=== PATIENT | male | born 1980 | race Caucasian/White ===

== ENCOUNTER 2018-02-01 12:35 | Emergency (ER) | payer BC ==
--- NOTE | 2018-02-01 13:34 | UC ---
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 Here with his young son. Has had poison isabelle contact in past but reaction was never this significant. rash is up b /l arms and encompasing forarms. + streaks and very itchy. has never needed prednisone. last reaction was mild. - History of Current Complaint Chief Complaint: UCRash Time Seen by Provider: 02/01/18 13:24 Stated Complaint: SKIN COMPLAINT Pain Intensity: 0 - Allergy/Home Medications Allergies/Adverse Reactions: Allergies Allergy/AdvReac Type Severity Reaction Status Date / Time No Known Allergies Allergy Verified 02/01/18 13:15 Home Medications: Home Medications Calamine Lotion 1 dose TOPICAL SEE INSTRUCTIONS PRN 02/01/18 [History Confirmed 02/01/18] Skin Cleanser Comb No.41 [Tecnu] 355 ml TP SEE INSTRUCTIONS PRN 02/01/18 [ History Confirmed 02/01/18] Review of Systems Constitutional: Negative Skin: Rash, Other - itchiness Eyes: Negative ENT: Negative Respiratory: Negative Cardiovascular: Negative Gastrointestinal: Negative Genitourinary: Negative Motor: Negative Neurovascular: Negative Musculoskeletal: Negative Neurological: Negative Psychological: Negative Is Patient Immunocompromised?: No All Other Systems Reviewed And Are Negative: Yes PMH/Surg Hx/FS Hx/Imm Hx Previously Healthy: Yes - Surgical History Surgical History: None - Family History Known Family History: Positive: Diabetes - uncle - Social History Alcohol Use: Occasionally Substance Use Type: None Smoking Status (MU): Light Every Day Tobacco Smoker Physical Exam Triage Information Reviewed: Yes Appearance: Well-Appearing, No Pain Distress, Well-Nourished - very pleasant Vital Signs: Initial Vital Signs Temp 98.8 F 02/01/18 13:19 Pulse 85 02/01/18 13:19 Resp 18 02/01/18 13:19 BP 146/65 02/01/18 13:19 Pulse Ox 99 02/01/18 13:19 Vital Signs Reviewed: Yes Eye Exam: Normal ENT Exam: Normal Respiratory Exam: Normal Respiratory: Positive: Lungs clear Cardiovascular: Positive: RRR, No Murmur Musculoskeletal Exam: Normal Neurological Exam: Normal Psychological Exam: Normal Skin: Positive: rashes - b/l arms, upper and lower, with signifcnat extension of baseline erythema and streaks w/ superimposed vessicles Course/Dx - Course Course Of Treatment: moderate-severe contact demratitis x 6 days. extensively discussed treatment course with least amt of prednisone to adequately treat the dermatitis and to avoid rebound w/ insufficient dosing. -IM 80mgs depo-medrol today. -start 60mg tapering prednisone tomorrow. -rpt BP checked. he had cigg just prior to coming in. no sx. adv f/u with pcp. -topical moderate strength HC cream - Differential Diagnoses - Skin Complaint Differential Diagnoses: Cellulitis, Contact Dermatitis - Diagnoses Provider Diagnoses: contact dermatitis Discharge - Sign-Out/Discharge Documenting (check all that apply): Patient Departure - Discharge Plan Condition: Stable Disposition: HOME Prescriptions: Hydrocortisone Valerate 45 gm TOPICAL BID PRN 14 Days #45 oint...g. PRN Reason: Itching predniSONE TAB* [Deltasone 10 MG TAB*] 20 mg PO DAILY 13 Days #20 tab Patient Education Materials: Contact Dermatitis (ED) Referrals: Miles Crespo MD [Primary Care Provider] - Additional Instructions: We discussed risks of prednisone including but not limited to anxiety, agitation , insomnia, GI upset, elevated blood pressures and blood sugar readings, adrenal crisis and avascular necrosis of the hip. -start the oral pills tomorrow as you got an 80mgs injection today. Take an OTC prilosec or ranitidine if you have stomach upset. -Make sure to follow up with your PCP for your blood pressure as well. - Billing Disposition and Condition Condition: STABLE Disposition: Home
[2018-02-01] MEDS ORDERED: methylPREDNISolone ACETATE 80* 80 MG/ML 1 ML VIAL IM ONE (13:50)
[2018-02-01 13:55] VITALS: BP 146/95
== END 2018-02-01 14:30 | disposition home or self-care (01) ==
LOC: UCCORT 12:35
DX: T63.791A Toxic effect of contact with other venomous plant, accidental (unintentional), initial encounter (principal); L23.7 Allergic contact dermatitis due to plants, except food; Y92.89 Other specified places as the place of occurrence of the external cause; F17.210 Nicotine dependence, cigarettes, uncomplicated
CPT/HCPCS: 96372; 99212; G0463; J1040